=== PATIENT | female | born 1975 | race African-American/Black ===

== ENCOUNTER 2018-09-22 13:43 | Emergency (ER) | payer OTHER ==
[~2018-09-22] VITALS: Ht 160 cm; Wt 140.9 kg
[2018-09-22 13:47] VITALS: TEMP 97.6
[2018-09-22 14:25] LABS: BASO # 0.1 (0.0-0.2); BASO % 0.9 % (0.0-2.0); EOS # 0.4 (0.0-0.7); EOS % 6.2 % (0-4.0); GRAN # 3.7 (1.4-6.5); GRAN % 53.3 % (42.2-75.2); HEMOGLOBIN 12.5 g/dl (12.5-16.0); LYMPH # 2.3 (1.2-3.4); MEAN CELL VOLUME 98 fl (80.0-100.0); MEAN CORPUSCULAR HEMOGLOBIN 32 pg (27.0-31.0); MEAN CORPUSCULAR HGB CONC 33 g/dl (33.0-37.0); MEAN PLATELET VOLUME 8.9 fl (7.4-10.4); MONO # 0.4 (0.1-0.6); MONO % 6.2 % (1.7-9.3); PLATELET COUNT 341 K/mm3 (130-400); RED BLOOD COUNT 3.89 M/mm3 (4.10-5.30)
[2018-09-22 14:38] LABS: ALBUMIN 4.1 gm/dL (3.5-5.0); BILIRUBIN,TOTAL 0.4 mg/dL (0.0-1.0); C-REACTIVE PROTEIN 3.2 mg/dL (0.0-0.9); CALCIUM 9.5 mg/dL (8.4-10.2); CREATININE, serum 0.55 mg/dL (0.52-1.25); TOTAL PROTEIN 9.2 gm/dL (6.4-8.2)
[2018-09-22 16:14] LABS: COLLECTION METHOD CLEAN CATCH
[2018-09-22 16:51] LABS: MUCOUS Present /lpf; PH 6 (5-8); SQUAMOUS EPITHELIAL 0-2 /hpf; URINE APPEARANCE Clear; URINE BACTERIA None Seen /hpf; URINE BILIRUBIN Negative (NEGATIVE); URINE BLOOD Negative (NEGATIVE); URINE COLOR Yellow; URINE GLUCOSE Negative (NEGATIVE); URINE KETONE Negative (NEGATIVE); URINE LEUKOCYTE ESTERASE Negative (NEGATIVE); URINE NITRATE Negative (NEGATIVE); URINE PROTEIN(semi-quant) Negative (NEGATIVE); URINE UROBILINOGEN Negative (NEGATIVE)
[2018-09-22] MEDS ORDERED: VOLTAREN 75 DR75 MG PO (17:14)
[2018-09-22] MEDS ORDERED: PREDNISONE20 MG PO (17:14)
[2018-09-22] MEDS ORDERED: NORCO 325 MG-51 TAB PO (17:14)
[2018-09-22 17:42] VITALS: BP 125/88; PULSE 88
== END 2018-09-22 17:45 | disposition home or self-care (01) ==
LOC: COL.ER 13:43
PROVIDERS: Family Medicine
DX: M54.16 Radiculopathy, lumbar region (principal); I10 Essential (primary) hypertension; Z90.710 Acquired absence of both cervix and uterus; Z90.49 Acquired absence of other specified parts of digestive tract
CPT/HCPCS: J1170; J1885; J2405; J2930; J7030; Q9967

== ENCOUNTER → 2018-10-10 | Outpatient (CLI) | payer OTHER ==
[~2018-10-10] MED LIST: NORCO 325 MG-51 TAB PO; PREDNISONE20 MG PO; VOLTAREN 75 DR75 MG PO
== END ==
LOC: COL.RAD 08:04
DX: M53.2X6 Spinal instabilities, lumbar region (principal); M51.26 Other intervertebral disc displacement, lumbar region; M48.061 Spinal stenosis, lumbar region without neurogenic claudication

== ENCOUNTER → 2018-10-17 | Outpatient (CLI) | payer OTHER | LOC: MHCPAIN 13:09 | DX: G89.29 Other chronic pain (principal); M47.817 Spondylosis without myelopathy or radiculopathy, lumbosacral region; M54.16 Radiculopathy, lumbar region; M53.3 Sacrococcygeal disorders, not elsewhere classified; M48.061 Spinal stenosis, lumbar region without neurogenic claudication | CPT/HCPCS: G0463 ==

== ENCOUNTER → 2018-10-25 | Outpatient (CLI) | payer OTHER | LOC: MHCPAIN 08:24 | DX: M47.817 Spondylosis without myelopathy or radiculopathy, lumbosacral region (principal); M54.16 Radiculopathy, lumbar region | CPT/HCPCS: J1100; Q9967 ==

== ENCOUNTER → 2018-11-05 | Outpatient (CLI) | payer OTHER | LOC: MHCPAIN 08:53 | DX: G89.29 Other chronic pain (principal); M47.817 Spondylosis without myelopathy or radiculopathy, lumbosacral region; M54.16 Radiculopathy, lumbar region; M53.3 Sacrococcygeal disorders, not elsewhere classified; M48.061 Spinal stenosis, lumbar region without neurogenic claudication | CPT/HCPCS: G0463 ==

== ENCOUNTER → 2018-11-12 | Outpatient (CLI) | payer OTHER | LOC: MHCPAIN 10:44 | DX: M47.817 Spondylosis without myelopathy or radiculopathy, lumbosacral region (principal); M54.16 Radiculopathy, lumbar region | CPT/HCPCS: J1100; Q9967 ==

== ENCOUNTER → 2018-12-12 | Outpatient (CLI) | payer OTHER | LOC: MHCPAIN 08:48 | DX: G89.29 Other chronic pain (principal); M47.817 Spondylosis without myelopathy or radiculopathy, lumbosacral region; M54.16 Radiculopathy, lumbar region; M53.3 Sacrococcygeal disorders, not elsewhere classified; M48.061 Spinal stenosis, lumbar region without neurogenic claudication | CPT/HCPCS: G0463 ==

== ENCOUNTER 2019-01-14 15:00 | Outpatient (RCR) | payer OTHER | END 2019-02-12 | LOC: WSPT | DX: M48.061 Spinal stenosis, lumbar region without neurogenic claudication (principal); M53.3 Sacrococcygeal disorders, not elsewhere classified; M47.27 Other spondylosis with radiculopathy, lumbosacral region; M51.16 Intervertebral disc disorders with radiculopathy, lumbar region; M43.16 Spondylolisthesis, lumbar region; E66.01 Morbid (severe) obesity due to excess calories; Z68.43 Body mass index [BMI] 50.0-59.9, adult ==

== ENCOUNTER → 2019-08-28 | Outpatient (CLI) | payer OTHER | LOC: MC.RAD 12:50 | DX: Z12.31 Encounter for screening mammogram for malignant neoplasm of breast (principal); N63.31 Unspecified lump in axillary tail of the right breast; N63.32 Unspecified lump in axillary tail of the left breast ==

== ENCOUNTER → 2019-09-04 | Outpatient (CLI) | payer OTHER | LOC: MC.RAD 07:30 | DX: Z12.31 Encounter for screening mammogram for malignant neoplasm of breast (principal); R59.0 Localized enlarged lymph nodes ==

== ENCOUNTER 2020-08-03 22:42 | Inpatient (IN) | payer OTHER ==
[~2020-08-03] VITALS: Ht 165.1 cm; Wt 138.5 kg
[2020-08-03 23:51] LABS: ALANINE AMINOTRANSFERASE 62 U/L (4-34); ALBUMIN 4.1 gm/dL (3.5-5.0); ALKALINE PHOSPHATASE 157 U/L (50-136); ANION GAP 10 mmol/L (7-16); AST,SGOT 73 U/L (15-37); BILIRUBIN,TOTAL 0.6 mg/dL (0.0-1.0); BLOOD UREA NITROGEN 12 mg/dL (7-17); CALCIUM 8.7 mg/dL (8.4-10.2); CARBON DIOXIDE 27 mmol/L (22-30); CHLORIDE 99 mmol/L (98-107); CREATININE, serum 0.82 (0.52-1.25); GLUCOSE 138 mg/dL (74-106); POTASSIUM 3.7 mmol/L (3.4-5.0); SODIUM 135 mmol/L (137-145)
[2020-08-03 23:53] LABS: BASO % 0.2 % (0.0-2.0); EOS % 0.6 % (0-4.0); GRAN # 4.1 (1.4-6.5); GRAN % 81.1 % (42.2-75.2); HEMATOCRIT 38.7 % (37.0-47.0); HEMOGLOBIN 12.7 g/dl (12.5-16.0); LYMPH # 0.6 (1.2-3.4); LYMPH % 12.7 % (20.0-51.0); MEAN CELL VOLUME 97 fl (80.0-100.0); MEAN CORPUSCULAR HEMOGLOBIN 32 pg (27.0-31.0); MEAN CORPUSCULAR HGB CONC 33 g/dl (33.0-37.0); MEAN PLATELET VOLUME 9.4 fl (7.4-10.4); MONO # 0.2 (0.1-0.6); MONO % 4.6 % (1.7-9.3); PLATELET COUNT 256 K/mm3 (130-400); RED BLOOD COUNT 3.99 M/mm3 (4.10-5.30); REDCELL DISTRIBUTION WIDTH-CV 12.9 % (11.5-14.5)
[2020-08-04 00:06] LABS: TROPONIN-I < 0.012 ng/mL (0.000-0.035)
[2020-08-04] MEDS ORDERED: HCTZ 25MG TAB25 MG PO (00:44)
[2020-08-04] MEDS ORDERED: SINGULAIR 110 MG/TAB PO (00:44)
[2020-08-04] MEDS ORDERED: ALDACTONE50 MG PO (00:45)
[2020-08-04] MEDS ORDERED: COZAAR100 MG PO (00:45)
[2020-08-04] MEDS ORDERED: LEXAPRO 10MG10 MG PO (00:45)
[2020-08-04 01:25] LABS: COLLECTION METHOD CLEAN CATCH
[2020-08-04 01:42] LABS: PH 7 (5-8); SQUAMOUS EPITHELIAL 0-2 /hpf; URINE APPEARANCE Clear; URINE BACTERIA Rare /hpf; URINE BILIRUBIN Negative (NEGATIVE); URINE BLOOD Negative (NEGATIVE); URINE COLOR Yellow; URINE GLUCOSE Negative (NEGATIVE); URINE KETONE Negative (NEGATIVE); URINE LEUKOCYTE ESTERASE Negative (NEGATIVE); URINE NITRATE Negative (NEGATIVE); URINE PROTEIN(semi-quant) 1+ (NEGATIVE); URINE RBC 0-2 /hpf; URINE UROBILINOGEN Negative (NEGATIVE); URINE WBC 0-2 /hpf
[2020-08-04 06:54] LABS: HEMOGLOBIN 12.1 g/dl (12.5-16.0); MEAN CELL VOLUME 96 fl (80.0-100.0); MEAN CORPUSCULAR HEMOGLOBIN 32 pg (27.0-31.0); MEAN CORPUSCULAR HGB CONC 33 g/dl (33.0-37.0); MEAN PLATELET VOLUME 9.3 fl (7.4-10.4); PLATELET COUNT 251 K/mm3 (130-400); RED BLOOD COUNT 3.83 M/mm3 (4.10-5.30); REDCELL DISTRIBUTION WIDTH-CV 12.9 % (11.5-14.5)
[2020-08-04 07:02] LABS: HEMATOCRIT 36.7 % (37.0-47.0)
[2020-08-04 07:07] LABS: BILIRUBIN,TOTAL 0.5 mg/dL (0.0-1.0); CALCIUM 8.6 mg/dL (8.4-10.2); CREATININE, serum 0.79 (0.52-1.25); POTASSIUM 4.2 mmol/L (3.4-5.0); TOTAL PROTEIN 8.7 gm/dL (6.4-8.2)
--- NOTE | 2020-08-04 09:05 | NUR ---
Patient to room from ER via bed. Alert and oriented x4. Denies pain. Lung sounds diminished. Oxygen at 6L/NC. Denies cough or nausea. Patient does get short of air with activity. Patient has had other family members who have from COVID so she is trying to reassure her family that she is doing okay. Oriented to room.
[2020-08-04] MEDS ORDERED: FLONASEALLERGY NS (09:08)
[2020-08-04] MEDS ORDERED: CLARITIN 1010 MG/TAB PO (09:08)
[2020-08-04 09:11] VITALS: BP 112/68; PULSE 89; TEMP 98.2
--- NOTE | 2020-08-04 09:55 | NUR ---
When patient transferred to the floor from ER her medications were somehow discontinued. Sai in pharmacy also called to inform me of this. Spoke with Dr. Mitchell and he will order necessary medications. Patient BP lower when she came to floor and updated Dr. Mitchell on this. Will hold BP meds at this time.
--- NOTE | 2020-08-04 10:30 | NUR ---
OT explains that they were in room assisting patient with hygiene cares and while patient was brushing her teeth her SpO2 decreased into the 80's so they bumped her oxygen up to 7L/NC. Don, RT, updated and goes in to assess patient.
--- NOTE | 2020-08-04 10:51 | NUR ---
Dr. Solo notified of consult.
[2020-08-04 12:00] VITALS: BP 114/68; PULSE 94; TEMP 98.3
--- NOTE | 2020-08-04 13:58 | NUR ---
Plan to return home independently in [place]. Patient reports that she drove herself to the ER. Patient indicated that she has a mother Fela Carrillo [phone]. Patient denies having any dme at home. Patient reports that she does not have a need for skilled services or home health. Patient reports that her PCP is PCP is Dr. Banks, at [facility] with appointment nettacalela two weeks ago. Patient reports that she obtains Rx [facility] on [address], in . Patient reports that she is recieiving excellent care. Does nto anticipate any additonal concerns. Will continue to follow.
[2020-08-04 15:25] VITALS: BP 108/76; PULSE 93; TEMP 98.1
--- NOTE | 2020-08-04 15:33 | NUR ---
Sitting up in chair eating lunch, arrived late. Denies pain. Oxygen at 7L/NC. Patient says that she feels okay when she is at rest but get short of air with any activity. Patient says that it feels like there is something there for her to cough up but nothing comes out and she asks if this is normal that nothing comes out. Explain that some patient's have had a prodictive cough and other have not. Patient says that her sister just tested positive for COVID as well, sister lives in [place]. Patient says that her kids are going to get tested as well. Reassurance provided to the patient. Patient asks for Gatorade, provide at this time. Denies additional needs.
[2020-08-04 21:02] VITALS: BP 120/80; PULSE 88; TEMP 97.7
--- NOTE | 2020-08-04 22:28 | NUR ---
Patient sitting in the chair and watching TV upon enter the room. Patient A/Ox4. Patient denies anuy pain or discomfort. Denies SOB or dyspnea while at rest. Patient reports she gets SOB when she gets up and go to bathroom. Breathing even and unlabored at this time. SPO2 92% on 7L oxygen via NC. Left AC IV site has no s/s of complications. Flushed with NS without difficulty. Scheduled meds given per order. Call light within reach. Patient denies any needs at this time.
[2020-08-04 23:53] VITALS: BP 124/64; PULSE 78; TEMP 97.4
[2020-08-05 04:15] VITALS: BP 102/74; PULSE 79; TEMP 97.4
--- NOTE | 2020-08-05 05:47 | NUR ---
Patient rested well throughout the shift. SPO2 maintained 90% and above on 8L via NC throughout the shift. No acute respiratory distress noted. Call light within reach. Will give report to day shift nurse.
[2020-08-05 07:11] LABS: MEAN CELL VOLUME 97 fl (80.0-100.0); MEAN CORPUSCULAR HEMOGLOBIN 32 pg (27.0-31.0); MEAN CORPUSCULAR HGB CONC 33 g/dl (33.0-37.0); MEAN PLATELET VOLUME 9.7 fl (7.4-10.4); PLATELET COUNT 280 K/mm3 (130-400); RED BLOOD COUNT 3.76 M/mm3 (4.10-5.30); REDCELL DISTRIBUTION WIDTH-CV 13.1 % (11.5-14.5)
[2020-08-05 07:15] LABS: HEMATOCRIT 36.4 % (37.0-47.0)
[2020-08-05 07:20] LABS: CALCIUM 8.3 mg/dL (8.4-10.2); CREATININE, serum 0.69 (0.52-1.25)
[2020-08-05 07:51] VITALS: BP 100/62; PULSE 76; TEMP 97.9
--- NOTE | 2020-08-05 07:57 | NUR ---
Lying in bed with eyes closed. Opens eyes when name called out. Alert and oriented x4. Denies pain. No shortness of air at this time, does get short of air with activity. Has nonproductive cough. Denies diarrhea or nausea. Voices no further needs at this time.
[2020-08-05 08:04] LABS: BAND 10 % (0-10); LYMPHOCYTE 21 % (20.0-51.0); METAMYELOCYTE 2 % (0-0); NEUTROPHILS 58 % (42.0-75.2); PLATELET ESTIMATE NORMAL (NORMAL)
--- NOTE | 2020-08-05 08:23 | NUR ---
Patient developed small area of redness on right inner forearm. Patient says it is hives. Patient also tearful that her breathing is not better yet and that her SpO2 drops with activity. Discuss with the patient the viral process and that it is going to take time to get her lungs built back up. Reassurance provided. Spoke with Dr. Mitchell regarding redness to patient arm and he does not give orders at this time, says to continue to monitor.
--- NOTE | 2020-08-05 08:28 | NUR ---
Discuss with the patient that I spoke with Dr. Mitchell, no changes at this time and we will monitor the redness on her arm. Patient verbalizes understanding. Breakfast tray provided. Patient is on cell phone. Denies additional needs.
--- NOTE | 2020-08-05 10:31 | NUR ---
Sitting up in chair. Says redness on her right arm has gone away. Doing okay at this time. Was able to brush teeth without difficulty today. Patient says that yesterday she took the oxygen off and that is probably why she had a hard time brushing her teeth. Patient says that her friend is to bring her clothes by today and after she gets that she would like to get in the shower. Will let staff know when she is ready. Denies needs at this time.
[2020-08-05 12:00] VITALS: BP 102/70; PULSE 81; TEMP 97.8
--- NOTE | 2020-08-05 12:00 | NUR ---
Patient sitting up in chair talking on phone with family. Patient gets off phone at this time. Denies pain. Oxygen on at 10L/NC. Patient says that she gets short of breath with activity. Has off and on nonproductive cough. Having congestion. Patient says that her friend dropped off her belongings and also came by the window so she could see her outside. Patient says this made her happy that she was able to see some familiar faces. Patient denies needs at this time.
--- NOTE | 2020-08-05 14:17 | NUR ---
The patient is positive for COVID. SW contacted the patient's room phone to discuss discharge plan. The patient lives alone in [place]. She reports independence with ADLs and does not have any DME. The patient's PCP is Dr. Gilma Banks and she receives her medications from the [facility]. She reports no difficulties obtaining her meds. The patient does not have a DPOA-HC and she was not interested in completing a DPOA-HC at this time. The patient states that she is not . She has two adult children, one biological and one adopted: Emilio Klein and Logan Armstrong. The patient has her mother, Fabio Carrillo (ph#[phone]), as her next of kin and person to notify. The patient plans to return home upon discharge. She is currently on 10 liters of oxygen, via high flow cannula. SW to continue to follow.
--- NOTE | 2020-08-05 16:01 | NUR ---
Sitting up in bed talking on cell phone. Has visitors coming by window and stopping to wave at her. Denies pain or shortness of air. Oxygen on at 10L/NC. Denies additional needs at this time.
[2020-08-05 16:21] VITALS: BP 130/87; PULSE 83; TEMP 97.4
--- NOTE | 2020-08-05 18:25 | NUR ---
Patient up independently in room. Remains on oxygen at 10L/NC. Talking on phone to family and friends. Feels good at this time. Denies additional needs at this time.
[2020-08-05 21:52] VITALS: BP 130/66; PULSE 96; TEMP 97.4
--- NOTE | 2020-08-05 22:25 | NUR ---
REPORT GIVEN TO DANE GAMEZ, CARE TRANSFERRED AT THIS TIME.
[2020-08-05 23:30] VITALS: BP 98/60; PULSE 74; TEMP 98
[2020-08-06] VITALS: BP 102/60; PULSE 76; TEMP 98.2
--- NOTE | 2020-08-06 | NUR ---
Patient resting in bed. Denies needs. Call light in reach.
--- NOTE | 2020-08-06 02:00 | NUR ---
Patient reported headache. Obtained order for tylenol. Will provide
[2020-08-06 06:07] VITALS: BP 102/60; PULSE 76; TEMP 98.2
--- NOTE | 2020-08-06 06:32 | NUR ---
Patient had uneventful night. Resting in bed this AM. Call light in reach.
--- NOTE | 2020-08-06 07:09 | NUR ---
Report given to VERA Hopkins
[2020-08-06 07:32] LABS: HEMATOCRIT 37.2 % (37.0-47.0); HEMOGLOBIN 12.2 g/dl (12.5-16.0); MEAN CELL VOLUME 96 fl (80.0-100.0); MEAN CORPUSCULAR HEMOGLOBIN 31 pg (27.0-31.0); MEAN CORPUSCULAR HGB CONC 33 g/dl (33.0-37.0); MEAN PLATELET VOLUME 9.6 fl (7.4-10.4); PLATELET COUNT 365 K/mm3 (130-400); RED BLOOD COUNT 3.88 M/mm3 (4.10-5.30); REDCELL DISTRIBUTION WIDTH-CV 13.1 % (11.5-14.5)
[2020-08-06 07:38] LABS: CALCIUM 8.7 mg/dL (8.4-10.2); CREATININE, serum 0.6 (0.52-1.25); POTASSIUM 4.1 mmol/L (3.4-5.0)
--- NOTE | 2020-08-06 08:35 | NUR ---
Assessment complete. Pt sitting up in bed, A&O x 4, reports feeling the same with slight shortness of breath noted. O2 at 7 L/min via HFNC, sats ranging from 88-93%. Pt denies pain at this time. Saline lock IV to left AC without s/s of compications. No further needs reported. Call light in reach.
[2020-08-06 08:45] VITALS: BP 118/62; PULSE 72; TEMP 97.6
[2020-08-06 11:59] LABS: ALBUMIN 3.7 gm/dL (3.5-5.0); BILIRUBIN UNCONJUGATED 0.1 mg/dL (0.0-1.1); BILIRUBIN,DIRECT 0.1 mg/dL (0.0-0.4); BILIRUBIN,TOTAL 0.3 mg/dL (0.0-1.0); TOTAL PROTEIN 8.6 gm/dL (6.4-8.2)
[2020-08-06 12:00] VITALS: BP 130/88; PULSE 68; TEMP 97.7
[2020-08-06 16:44] VITALS: BP 131/78; PULSE 73; TEMP 97.7
--- NOTE | 2020-08-06 17:30 | NUR ---
Pt sitting up in chair, resp even and unlabored, O2 remains at 7 L/min via HFNC. Pt denies needs at this time. Call light in reach.
[2020-08-06 19:32] VITALS: BP 124/88; PULSE 75; TEMP 97.9
--- NOTE | 2020-08-06 19:37 | NUR ---
Sitting at bedside. Assessment complete. Right lung coarse, left lung clear. On 5 liters high flow at 92%. Heart sounds normal. Bowels active x4. Pulses present throughout. Bilateral lower extremity edema +1. INT left AC flushed without complications. Denies pain. Would like melatonin to help sleep. Will obtain order. Denies other needs. Call light in reach.
--- NOTE | 2020-08-06 22:02 | NUR ---
Provided with melatonin. Denies other needs. Call light inreach.
[2020-08-07] VITALS (7 sets, daily range): BP systolic 110–132; BP diastolic 60–84; PULSE 65–82; TEMP 97.5–98.3
--- NOTE | 2020-08-07 02:38 | NUR ---
Resting in bed. Denies needs. Call light in reach.
--- NOTE | 2020-08-07 04:17 | NUR ---
Resting in bed. Denies needs. Call light in reach.
--- NOTE | 2020-08-07 06:14 | NUR ---
Patient required x1 dose of melatonin to aide with sleeping. Continues on 5 liters via high flow nasal cannula. Otherwise uneventful night. Resting in bed this AM. Call light in reach.
--- NOTE | 2020-08-07 07:00 | NUR ---
Report received from VERA Farnsworth. Pt in bed resting, denies needs, will continue to monitor.
--- NOTE | 2020-08-07 07:38 | NUR ---
Report given to VERA Askew
[2020-08-07 08:05] LABS: MEAN CELL VOLUME 96 fl (80.0-100.0); MEAN CORPUSCULAR HEMOGLOBIN 32 pg (27.0-31.0); MEAN CORPUSCULAR HGB CONC 33 g/dl (33.0-37.0); MEAN PLATELET VOLUME 9.2 fl (7.4-10.4); PLATELET COUNT 367 K/mm3 (130-400); RED BLOOD COUNT 3.77 M/mm3 (4.10-5.30); REDCELL DISTRIBUTION WIDTH-CV 12.9 % (11.5-14.5)
[2020-08-07 08:10] LABS: HEMATOCRIT 36.2 % (37.0-47.0)
[2020-08-07 08:17] LABS: CALCIUM 8.9 mg/dL (8.4-10.2); CREATININE, serum 0.57 (0.52-1.25); POTASSIUM 3.8 mmol/L (3.4-5.0)
[2020-08-07 09:26] LABS: BAND 1 % (0-10); LYMPHOCYTE 40 % (20.0-51.0); NEUTROPHILS 49 % (42.0-75.2); PLATELET ESTIMATE NORMAL (NORMAL)
--- NOTE | 2020-08-07 10:44 | NUR ---
Assessment charted. Pt doing well, states she feels about the same as yesterday in terms of air. Using IS hourly and getting it up to 1500 mls. On phone wiht sister and having no obious shortness of breath when communicating. Denies needs, denies pain, INT to LA/C. Will continue to monitor.
--- NOTE | 2020-08-07 18:14 | NUR ---
Pt on bench at side of bed resting, has had a good day, titrated oxygen down to 5L NC. PT showered and up ad rusty around the room. Denies pain or other needs, using IS. Will continue to monitor and give bedside shift report to nightshift nurse who will resume care.
--- NOTE | 2020-08-07 20:30 | NUR ---
Resting in bed. Assessment complete. Bases bilaterally fine crackles, upper lobes clear. Patient denies shortness of breath. Currently on 5 liters, high flow. Heart sounds normal. Bowels active x4. Pulses present throughout. Bilateral lower ext edema +1. INT left AC flushed without complications. Denies pain. Denies needs. Call light in reach.
--- NOTE | 2020-08-07 23:49 | NUR ---
Resting in bed. Denies needs. Call light in reach.
--- NOTE | 2020-08-08 01:58 | NUR ---
Resting in bed. Denies needs. Call light in reach.
[2020-08-08 03:53] VITALS: BP 134/78; PULSE 63; TEMP 97.6
--- NOTE | 2020-08-08 05:57 | NUR ---
Patient had uneventful night. Resting in bed this AM. Call light in reach.
--- NOTE | 2020-08-08 06:55 | NUR ---
Report given to VERA Askew
--- NOTE | 2020-08-08 07:00 | NUR ---
Report received from VERA Valderrama. Pt in bed resting with eyes closed, will continue to monitor.
[2020-08-08 07:22] LABS: MEAN CELL VOLUME 96 fl (80.0-100.0); MEAN CORPUSCULAR HEMOGLOBIN 32 pg (27.0-31.0); MEAN CORPUSCULAR HGB CONC 33 g/dl (33.0-37.0); MEAN PLATELET VOLUME 9.2 fl (7.4-10.4); PLATELET COUNT 390 K/mm3 (130-400); RED BLOOD COUNT 3.79 M/mm3 (4.10-5.30); REDCELL DISTRIBUTION WIDTH-CV 12.9 % (11.5-14.5)
[2020-08-08 07:25] LABS: HEMATOCRIT 36.2 % (37.0-47.0)
[2020-08-08 07:35] LABS: ALBUMIN 3.7 gm/dL (3.5-5.0); BILIRUBIN,TOTAL 0.4 mg/dL (0.0-1.0); CALCIUM 9.1 mg/dL (8.4-10.2); CREATININE, serum 0.58 (0.52-1.25); POTASSIUM 4.2 mmol/L (3.4-5.0); TOTAL PROTEIN 8.4 gm/dL (6.4-8.2)
[2020-08-08 07:49] VITALS: BP 120/67; PULSE 73; TEMP 97.5
[2020-08-08 07:51] LABS: LYMPHOCYTE 46 % (20.0-51.0); NEUTROPHILS 47 % (42.0-75.2); PLATELET ESTIMATE NORMAL (NORMAL)
--- NOTE | 2020-08-08 08:02 | NUR ---
Assessment charted. Pt feeling well today, 02 only at 90% discussed using IS and getting up ad rusty. Otherwise well, more lung air movement in LLL today. INT to L AC. Denies pain and other needs, will continue to monitor.
[2020-08-08 11:40] VITALS: BP 128/69; PULSE 72; TEMP 97.6
[2020-08-08 16:00] VITALS: BP 122/68; PULSE 74; TEMP 97.6
--- NOTE | 2020-08-08 18:49 | NUR ---
Pt has had a good day, down to 4L HFNC. Jared crystal will give bedside shift report to nightshift nruse who will resume care.
[2020-08-08 19:35] VITALS: BP 132/70; PULSE 70; TEMP 97.5
[2020-08-08 23:31] VITALS: BP 120/72; PULSE 63; TEMP 97.7
[2020-08-09 03:45] VITALS: BP 119/72; PULSE 66; TEMP 97.9
--- NOTE | 2020-08-09 07:00 | NUR ---
Report received from travel selene Swanson. Pt had good night, resting in bed will continue to monitor.
[2020-08-09 08:46] LABS: HEMATOCRIT 37.5 % (37.0-47.0); HEMOGLOBIN 12.5 g/dl (12.5-16.0); MEAN CELL VOLUME 94 fl (80.0-100.0); MEAN CORPUSCULAR HEMOGLOBIN 31 pg (27.0-31.0); MEAN CORPUSCULAR HGB CONC 33 g/dl (33.0-37.0); MEAN PLATELET VOLUME 8.9 fl (7.4-10.4); PLATELET COUNT 433 K/mm3 (130-400); RED BLOOD COUNT 3.98 M/mm3 (4.10-5.30); REDCELL DISTRIBUTION WIDTH-CV 12.6 % (11.5-14.5)
[2020-08-09 08:59] LABS: CREATININE, serum 0.59 (0.52-1.25); POTASSIUM 3.6 mmol/L (3.4-5.0)
[2020-08-09 09:00] VITALS: BP 113/68; PULSE 70; TEMP 97.3
[2020-08-09 10:02] LABS: LYMPHOCYTE 47 % (20.0-51.0); METAMYELOCYTE 1 % (0-0); NEUTROPHILS 50 % (42.0-75.2); PLATELET ESTIMATE INCREASED (NORMAL)
--- NOTE | 2020-08-09 10:30 | NUR ---
Assessleila ricks. Pt doing well today, denies pain in L thigh, feels it was from how she was sitting in window bench yesterday. Doing well now, titrated down to 3LNC able to maintain saturations at 94%. L lung clear and R is more diminished pt states she slept on R side, disucssed need to use IS and move today. Pt states she is feeling well and will do so, is hoping to discharge possibly as soon as tomorrow. Will contineu to monitor.
[2020-08-09 12:00] VITALS: BP 112/70; PULSE 72; TEMP 97.5
[2020-08-09 16:43] VITALS: BP 134/83; PULSE 80; TEMP 97.6
--- NOTE | 2020-08-09 18:10 | NUR ---
Pt has done well today. REsting in chair at side of bed eating supper. Denies pain or other needs, anticipating exercise oximetry tomorrow, will give bedside shift report to nightshift nurse who will resume care.
[2020-08-09 20:49] VITALS: BP 127/80; PULSE 60; TEMP 97.8
[2020-08-09 23:09] VITALS: BP 114/72; PULSE 88; TEMP 97.6
[2020-08-10 03:53] VITALS: BP 103/49; PULSE 63; TEMP 97.8
[2020-08-10 06:59] LABS: MEAN CELL VOLUME 94 fl (80.0-100.0); MEAN CORPUSCULAR HEMOGLOBIN 32 pg (27.0-31.0); MEAN CORPUSCULAR HGB CONC 33 g/dl (33.0-37.0); PLATELET COUNT 447 K/mm3 (130-400); RED BLOOD COUNT 3.81 M/mm3 (4.10-5.30); REDCELL DISTRIBUTION WIDTH-CV 12.6 % (11.5-14.5)
[2020-08-10 07:06] LABS: CALCIUM 9.3 mg/dL (8.4-10.2); CREATININE, serum 0.59 (0.52-1.25)
[2020-08-10 07:18] LABS: HEMATOCRIT 35.9 % (37.0-47.0)
[2020-08-10 07:53] VITALS: BP 102/59; PULSE 65; TEMP 98.3
[2020-08-10 08:21] LABS: EOSINOPHIL 1 % (0-4); LYMPHOCYTE 37 % (20.0-51.0); METAMYELOCYTE 1 % (0-0); NEUTROPHILS 43 % (42.0-75.2); PLATELET ESTIMATE NORMAL (NORMAL)
[2020-08-10] MEDS ORDERED: DECADRON6 MG PO (09:37)
[2020-08-10 12:00] VITALS: BP 132/82; PULSE 65; TEMP 97.5
--- NOTE | 2020-08-10 13:01 | NUR ---
Patient to discharge home today. Patient had an exercise oximetry and will not require home oxygen. No needs identified at this time.
--- NOTE | 2020-08-10 15:30 | NUR ---
Pt discharged to home, discussed discharge packet with Pt, answered questions. Escorted Pt to entrance, Pt left in private transportation with family.
== END 2020-08-10 15:30 | disposition home or self-care (01) | DRG 177 ==
LOC: COL.ER 22:42 → PEDS 08-04 02:22 → MEDICAL 08-10 07:47 → PEDS 08-10 07:47
PROVIDERS: Emergency Medicine; Physician Assistant; Student in an Organized Health Care Education/Training Program; ADMIT Internal Medicine
PROC: XW033E5 Introduction of Remdesivir Anti-infective into Peripheral Vein, Percutaneous Approach, New Technology Group 5 (ICD-10-PCS; principal; 2020-08-04)
DX: U07.1 COVID-19 (principal); J12.82 Pneumonia due to coronavirus disease 2019; J96.01 Acute respiratory failure with hypoxia; Z68.43 Body mass index [BMI] 50.0-59.9, adult; I10 Essential (primary) hypertension; J30.2 Other seasonal allergic rhinitis; F39 Unspecified mood [affective] disorder; R74.01 Elevation of levels of liver transaminase levels; E66.9 Obesity, unspecified; R79.89 Other specified abnormal findings of blood chemistry
CPT/HCPCS: 99222-AI; 99232-AI; 99239; J0456; J0696; J1100; J1650; J7050; Q9967

== ENCOUNTER → 2020-09-10 | Outpatient (CLI) | payer OTHER ==
[~2020-09-10] MED LIST changes: +ALDACTONE50 MG PO; +CLARITIN 1010 MG/TAB PO; +COZAAR100 MG PO; +DECADRON6 MG PO; +FLONASEALLERGY NS; +HCTZ 25MG TAB25 MG PO; +LEXAPRO 10MG10 MG PO; +SINGULAIR 110 MG/TAB PO
== END ==
LOC: COL.RAD 16:10
DX: Q79.1 Other congenital malformations of diaphragm (principal); Z86.16 Personal history of COVID-19

== ENCOUNTER → 2021-09-15 | Outpatient (CLI) | payer OTHER | LOC: MC.RAD 10:11 | DX: Z12.31 Encounter for screening mammogram for malignant neoplasm of breast (principal) ==

== ENCOUNTER → 2022-05-04 | Outpatient (CLI) | payer OTHER | LOC: COL.RAD 12:51 | DX: R59.0 Localized enlarged lymph nodes (principal); R79.1 Abnormal coagulation profile | CPT/HCPCS: Q9967 ==

== ENCOUNTER → 2022-10-05 | Outpatient (CLI) | payer OTHER | LOC: COL.PUL 07:37 | DX: R06.02 Shortness of breath (principal) ==